=== PATIENT | male | born 1985 | race Caucasian/White ===

== ENCOUNTER 2018-03-14 02:02 | Emergency (ER) | payer SELFPAY ==
[~2018-03-14] VITALS: Ht 165.1 cm; Wt 76.9 kg
--- NOTE | 2018-03-14 02:45 | NUR ---
PT AMBULATE TO ROOM 3, SISTER WITH PT, PT MORE RELAXED AT THIS TIME WITH FAMILY MEMBER PRESENT
--- NOTE | 2018-03-14 02:53 | NUR ---
assessment made. chart up for MD to see. patient c/o blood in his urine. dark orange and alos c/o bump on the base of his neck after a massage.
--- NOTE | 2018-03-14 02:55 | NUR ---
ERP at bedside.
--- NOTE | 2018-03-14 03:10 | NUR ---
patient states that he is scared lately and wanting to get some help. denies SI/HI.
[2018-03-14 03:37] LABS: BASOPHILS # (AUTO) 0.01 x10^3/uL (0-0.1); BASOPHILS % (AUTO) 0 % (0-1); EOSINOPHILS # (AUTO) 0.13 x10^3/uL (0-0.4); EOSINOPHILS % (AUTO) 1 % (1-7); LYMPHOCYTES # (AUTO) 0.89 x10^3/uL (1-3.4); LYMPHOCYTES % (AUTO) 10 % (22-44); MD NO; MEAN CORPUSCULAR HEMOGLOBIN 31.9 pg (27.5-34.5); MEAN CORPUSCULAR HGB CONC 33.9 g/dL (33.2-36.2); MEAN CORPUSCULAR VOLUME 94.3 fL (81-97); MEAN PLATELET VOLUME 7.5 fL (7.4-10.4); MONOCYTES # (AUTO) 0.36 x10^3/uL (0.2-0.8); MONOCYTES % (AUTO) 4 % (2-9); NEUTROPHILS # (AUTO) 7.57 x10^3/uL (1.8-6.8); NEUTROPHILS % (AUTO) 85 % (42-75); PLATELET COUNT 289 x10^3/uL (130-400); RED BLOOD COUNT 4.62 x10^6/uL (4.38-5.82); RED CELL DISTRIBUTION WIDTH 13.4 % (9.4-14.8)
[2018-03-14 03:50] LABS: ALBUMIN 4.4 g/dL (3.4-5.0); ANION GAP 8 mmol/L (5-15); CALCIUM 8.9 mg/dL (8.5-10.1); CHLORIDE 105 mmol/L (98-107); CREATININE 1.12 mg/dL (0.7-1.3)
--- NOTE | 2018-03-14 03:50 | NUR ---
Patient is self-pay. Telepsych initiated at this time.
[2018-03-14 03:51] LABS: ACETAMINOPHEN < 2 mcg/mL (10-30); SALICYLATE LEVEL < 1.7 mg/dL (2.8-20.0)
--- NOTE | 2018-03-14 04:40 | NUR ---
urine sample obtained and sent to lab.
[2018-03-14 05:27] LABS: AMPHETAMINE SCREEN, URINE Negative (Negative); BARBITURATE SCREEN, URINE Negative (Negative); BENZODIAZEPINE SCREEN, URINE Negative (Negative); CANNABINOID SCREEN, URINE Positive (Negative); COCAINE SCREEN, URINE Negative (Negative); METHADONE SCREEN, URINE Negative (Negative); OPIATE SCREEN, URINE Negative (Negative)
[2018-03-14 05:36] LABS: MICROSCOPIC NOT IND
[2018-03-14 05:51] LABS: CULTURE INDICATED? NO
--- NOTE | 2018-03-14 06:27 | NUR ---
psychiatrist talking to patient.
--- NOTE | 2018-03-14 06:54 | NUR ---
report to ROMEO Barton.
--- NOTE | 2018-03-14 07:57 | NUR ---
Telepsych has not called back after pt evaluation completed. Page placed.
--- NOTE | 2018-03-14 08:10 | NUR ---
Spoke w/ psychologist. Pt was not willing to talk about mental illness issues during telepsych consult & was concerned about getting neck x-ray and also voiced concerns that "my lung feels collapsed". Pt is in no resp. distress, RR 12 RA SPO2 97%.
--- NOTE | 2018-03-14 08:28 | NUR ---
C-spine x-ray complete. Will offer telepsych consult after results back. Pt continues to deny HI/SI but appears very anxious.
[2018-03-14 09:34] VITALS: BP 136/88
--- NOTE | 2018-03-14 09:34 | NUR ---
Pt declines to have telepsych consult & would prefer to f/u in person with [facility] or [facility]. Referrals given.
== END 2018-03-14 09:36 | disposition home or self-care (01) ==
LOC: ED 03:48
DX: F41.1 Generalized anxiety disorder (principal)
CPT/HCPCS: 36415; 72050; 80048; 80307; 80329; 81003; 82040; 85025; 99284; G0480